=== PATIENT | female | born 1945 ===

== ENCOUNTER → 2022-04-01 | Outpatient (REF) | payer SELFPAY ==
[2022-04-01 08:19] LABS: Erythrocyte Sedimentation Rate 35 mm/hr (0-30)
[2022-04-01 08:23] LABS: Hematocrit 21.7 % (37-47); Mean Corp Hgb Conc 32.3 g/dL (32-36); Mean Corpuscular Hgb 29.5 pg (27.0-32.0); Mean Corpuscular Volume 91.6 fL (81-99); Mean Platelet Vol. 8.4 fl (6.2-12.0); Platelet Count 678 K/mm3 (150-450); RBC Distribution Width CV 14.4 % (11.6-14.6); RBC Distribution Width SD 47.8 fl (35.1-43.9); Red Blood Count 2.37 M/mm3 (4.2-5.4); White Blood Count 10.3 K/mm3 (4.4-11.0)
== END | disposition home or self-care (01) ==
LOC: OLS.ACW300 05:00
PROVIDERS: Referring Provider Family Medicine; Visit Provider Family Medicine
DX: M54.51 Vertebrogenic low back pain (principal); G89.18 Other acute postprocedural pain; M62.81 Muscle weakness (generalized); R27.9 Unspecified lack of coordination; Z48.811 Encounter for surgical aftercare following surgery on the nervous system
CPT/HCPCS: 36415; 85027; 85652; 86140

== ENCOUNTER 2022-04-06 04:00 | Outpatient (REF) | payer SELFPAY ==
[2022-04-06 09:56] LABS: Absolute Neutrophil Count 12.3 X10^3/uL (2.0-7.7); Basophil# 0.03 X10^3/uL; Basophil% 0.2 % (0-1); Eosinophil# 0.18 X10^3/uL; Eosinophils% 1.1 % (0-5); Hematocrit 23.2 % (37-47); Hemoglobin 7.3 g/dL (12.0-15.0); Lymphocyte % 12.5 % (19-41); Mean Corp Hgb Conc 31.5 g/dL (32-36); Mean Corpuscular Hgb 29.1 pg (27.0-32.0); Mean Corpuscular Volume 92.4 fL (81-99); Mean Platelet Vol. 8.4 fl (6.2-12.0); Monocyte# 1.28 X10^3/uL; NRBC Flagged by Analyzer 0.2 % (0-5); Neutrophil % 76.8 % (47-70); Platelet Count 634 K/mm3 (150-450); RBC Distribution Width CV 14.4 % (11.6-14.6); RBC Distribution Width SD 48.2 fl (35.1-43.9); Red Blood Count 2.51 M/mm3 (4.2-5.4)
[2022-04-06 10:34] LABS: Anion Gap 8 (5-15); BUN 12 mg/dL (7-18); BUN/Creat Ratio 17.6 RATIO (10-20); Calcium,Total 8.7 mg/dL (8.5-10.1); Chloride 99 mmol/L (98-107); Creatinine, Serum 0.68 mg/dL (0.55-1.02); EST Glomerular Filtration Rate 89 mL/min (>60); Est Glom Filt Rate - Afr Amer 107 mL/min (>60); Glucose 87 mg/dL (74-106); Potassium 3.4 mmol/L (3.5-5.1); Sodium Level 135 mmol/L (136-145)
== END 2022-04-06 23:59 | disposition home or self-care (01) ==
LOC: OLS.ACW300 04:00
PROVIDERS: Referring Provider Family Medicine; Visit Provider Family Medicine
DX: M31.6 Other giant cell arteritis (principal); Z48.811 Encounter for surgical aftercare following surgery on the nervous system; E78.5 Hyperlipidemia, unspecified
CPT/HCPCS: 36415; 80048; 85025

== ENCOUNTER 2022-04-13 05:00 | Outpatient (REF) | payer SELFPAY ==
[2022-04-13 09:13] LABS: Absolute Neutrophil Count 7.2 X10^3/uL (2.0-7.7); Basophil# 0.05 X10^3/uL; Basophil% 0.5 % (0-1); Eosinophil# 0.27 X10^3/uL; Eosinophils% 2.6 % (0-5); Hematocrit 21.5 % (37-47); Hemoglobin 6.7 g/dL (12.0-15.0); Lymphocyte % 15.3 % (19-41); Mean Corp Hgb Conc 31.2 g/dL (32-36); Mean Corpuscular Hgb 28.6 pg (27.0-32.0); Mean Corpuscular Volume 91.9 fL (81-99); Mean Platelet Vol. 8.2 fl (6.2-12.0); Monocyte# 1.16 X10^3/uL; Monocyte% 11.1 % (0-10); NRBC Flagged by Analyzer 0 % (0-5); Neutrophil # 7.18 X10^3/uL (2.7-7.7); Neutrophil % 68.3 % (47-70); Platelet Count 744 K/mm3 (150-450); RBC Distribution Width CV 14.4 % (11.6-14.6); RBC Distribution Width SD 47.3 fl (35.1-43.9); Red Blood Count 2.34 M/mm3 (4.2-5.4); White Blood Count 10.5 K/mm3 (4.4-11.0)
[2022-04-13 09:32] LABS: Anion Gap 8 (5-15); BUN 11 mg/dL (7-18); BUN/Creat Ratio 16.1 RATIO (10-20); Calcium,Total 8.6 mg/dL (8.5-10.1); Chloride 104 mmol/L (98-107); Creatinine, Serum 0.68 mg/dL (0.55-1.02); EST Glomerular Filtration Rate 89 mL/min (>60); Est Glom Filt Rate - Afr Amer 107 mL/min (>60); Glucose 95 mg/dL (74-106); Potassium 3.3 mmol/L (3.5-5.1); Sodium Level 138 mmol/L (136-145)
== END 2022-04-13 23:59 | disposition home or self-care (01) ==
LOC: OLS.ACW300 05:00
PROVIDERS: Visit Provider Family Medicine
DX: E78.5 Hyperlipidemia, unspecified (principal); M31.6 Other giant cell arteritis; P25.2 Pneumomediastinum originating in the perinatal period; Z48.811 Encounter for surgical aftercare following surgery on the nervous system
CPT/HCPCS: 36415; 80048; 85025

== ENCOUNTER → 2022-04-19 | Outpatient (REF) | payer SELFPAY | END | disposition home or self-care (01) | LOC: OLS.ACW300 12:40 | PROVIDERS: Visit Provider Family Medicine | DX: M54.51 Vertebrogenic low back pain (principal); G89.18 Other acute postprocedural pain; M62.81 Muscle weakness (generalized); R27.9 Unspecified lack of coordination; Z48.811 Encounter for surgical aftercare following surgery on the nervous system | CPT/HCPCS: 36415; 86140 ==